=== PATIENT | male | born 2005 ===

== ENCOUNTER → 2023-01-07 19:41 | Outpatient (CLI) | payer OTHER, SELFPAY ==
--- NOTE | 2023-01-07 19:44 | DI.MRI.S_ITS ---
PROCEDURE: MR WRIST RT WO CON INDICATIONS: Pain in right wrist TECHNIQUE: Noncontrast coronal proton density fast spin echo and T2 fast spin echo with fat saturation; coronal 3-D gradient echo, axial T1 spin echo and T2 fast spin echo with fat saturation, sagittal T1 spin echo through the wrist. COMPARISON: [facility] [place], CR, XR WRIST 3+ VIEWS RIGHT, 12/21/2022, 14:58. FINDINGS: Image quality: Excellent. Bones and cartilage: There is marrow edema involving scaphoid, lunate, and capitate . Ill-defined linear hypointense signal is seen involving proximal capitate and distal portion of lunate, subtle subcortical fracture is could suspected. 5 mm heterogeneously T2 hyperintense structure with sclerotic rim is noted in proximal scaphoid. No displaced fracture or cortical disruption is noted. Carpal ligaments: There is widened scapholunate interval with suggestion of at least high-grade partial-thickness tear involving dorsal and central component of scapholunate ligament. The lunotriquetral ligament appears intact. In the absence of intra-articular contrast, the extrinsic carpal ligaments are not well identified. On sagittal images, the pisohamate ligament appears intact. Triangular fibrocartilage complex: There is signal abnormality involving medial periphery of triangular fibrocartilage near its ulnar insertion. The adjacent meniscal homolog appears normal in the absence of intra-articular contrast. The extensor carpi ulnaris tendon appears mildly thickened at the level of ulnar styloid. Tendons and soft tissues: The carpal tunnel structures appear normal, including the median nerve. The ulnar nerve appears normal within Guyon's canal. All six extensor tendon compartments demonstrate normal morphology, without pathologic tendon sheath fluid. No soft tissue ganglion cysts. IMPRESSION: 1. Significant marrow edema involving scaphoid, lunate and capitate with subtle linear hypointense signal seen in proximal capitate and lunate concerning for subcortical fractures/contusions in these area. Nonspecific heterogeneously T2 hyperintense structure within proximal scaphoid which may represent a intraosseous cyst. No definite fracture line is noted in scaphoid. No evidence of avascular necrosis. 2. Suggestion of high-grade partial-thickness tear involving dorsal and central components of scapholunate ligament. The lunotriquetral ligament is intact. 3. Suggestion of triangular fibrocartilage tear near its ulnar insertion. 4. Tendinosis involving extensor carpi ulnaris tendon at the level of ulnar styloid. Dictated by: Mike Shoemaker M.D. on 01/08/2023 at 9:17 Approved by: Mkie Shoemaker M.D. on 01/08/2023 at 10:22
== END ==
PROVIDERS: Referring Provider Orthopaedic Surgery; Visit Provider Orthopaedic Surgery
DX: M25.431 Effusion, right wrist (principal); M25.531 Pain in right wrist
CPT/HCPCS: 73221